=== PATIENT | male | born 1965 | race Caucasian/White ===

== ENCOUNTER 2016-06-11 17:44 | Emergency (ER) | payer MEDICARE, OTHER ==
[~2016-06-11 17:44] MED LIST: *UNABLE1; ACET500CAP PO; ALKA-SELTZER P1 EAC3 PO; ALTA5 PO; AMLODIPINE; APRES50 PO; ARANESP25 IV; ASAB PO; AUG500 PO; BACDS PO; BEN25 PO; BUM1 PO; CARASPUDL PO; CAT1 PO; CIP2 PO; CIP5 PO; COREG12 PO; COREG25 PO; COREG3 PO; CRESTOR20 MG PO; CRESTOR5 MG PO; DEMA20 PO; DSS PO; DUONEB INH; DURICEF PO; EPOGEN IV; EPOGEN2000 MG/ML IV; EPOGEN4000 MG/ML IV; EZFE 200200 MG PO; FLOMAX4 PO; FLONASE NAS; FOSRENOL PO; FOSRENOL1000 MG PO; GLUCPH PO; HABIT21 TOP; HALF81 PO; INSULIN NOVOLOG; IODOSORB TOP; KDUR10 PO; KLOR-CON M2020 MEQ PO; L20 PO; L40 PO; L80 PO; LANTHANUM CARBONATE 2000 MG PO; LANTUS SC; LEVAQUIN750 MG PO; LEVEMIR SC; LIPITOR20 PO; LIPITOR40 PO; LISINOPRIL40 MG PO; LYRICA50 PO; METFORMIN; MIRALAXPKT PO; MONODOX100 MG PO; Metformin; NEO-SYNEPHRI0.05 % NAS; NEUR300 PO; NICODERM C14 MG/24 H TOP; NORCO1 TA2 PO; NORV10 PO; NORV5 PO; NOVOLOG SC; PCET PO; PERCOCET 10/3251 TAB PO; PERCOCET1 TA4 PO; PLAVIX PO; PRAVACHOL40 MG PO; PRIN10 PO; PRIN2.5 PO; PROAIR HFA INH; PROTONIX PO; PROVHFA INH; RENVELA800 MG PO; SENSIPAR30 M1 PO; SILVADENE1 % TOP; SMZ/TMP PO; SPIRIVA INH; SUCR PO; SYMBICORT 160/41 INH INH; ULTRAM50 PO; VANCOMYCIN; VENOFER IV; ZAROX2.5B PO; ZEMPLAR2 PO; ZESTRIL2.5 MG PO; ZITH250 PO; [UNRECOGNIZED DRUG - REMARK] NAS; percocet
[2016-06-11 17:47] LABS: BASOPHILS 0.6 %; BASOPHILS ABSOLUTE 0.04 10/3/uL (0.0-0.16); EOSINOPHILS 3.8 %; EOSINOPHILS ABSOLUTE 0.26 10/3/uL (0.0-0.53); ER CBC TAT 0 Hrs 05 Mins; HEMATOCRIT 40.5 % (40.0-51.0); HEMOGLOBIN 12.7 g/dL (13.6-17.8); IMMATURE GRANULOCYTES 0.3 %; IMMATURE GRANULOCYTES ABSOLUTE 0.02 10/3/uL (0.0-0.11); LYMPHOCYTES 15.3 %; LYMPHOCYTES ABSOLUTE 1.04 10/3/uL (0.67-4.30); MEAN CORPUS HGB CONC 31.4 g/dL (32.0-36.0); MEAN CORPUSCULAR HEMOGLOB 29.5 pg (26.0-34.0); MEAN PLATELET VOLUME 11.4 fL (9.2-13.0); MONOCYTES 6.6 %; MONOCYTES ABSOLUTE 0.45 10/3/uL (0.21-1.20); NEUTROPHILS 73.4 %; NEUTROPHILS ABSOLUTE 4.97 10/3/uL (2.02-8.40); PLATELET COUNT 121 10/3/uL (150-400); RBC DISTRIBUTION WIDTH 18.2 % (12.0-16.0); WHITE BLOOD CELLS 6.8 10/3/uL (4.5-10.5)
[2016-06-11 17:48] LABS: MANUAL DIFF NO %; MEAN CORPUSCULAR VOLUME 94.2 fL (80-100)
[2016-06-11 18:03] LABS: A/G RATIO 0.8 (0.7-1.9); ALBUMIN 3.3 G/DL (3.5-5.0); ALKALINE PHOSPHATASE 198 U/L (45-117); BUN (BLOOD UREA NITROGEN) 25 MG/DL (6-23); C-REACTIVE PROTEIN 14.3 MG/L (<8.0); CALCIUM, SERUM 8.2 MG/DL (8.5-10.4); CHLORIDE, SERUM 100 MMOL/L (96-112); CO2 (CARBON DIOXIDE) 29 MMOL/L (24-34); CREATININE 6.17 MG/DL (0.70-1.30); GFR AFRICAN AMERICAN 11 ML/MIN (>=60); GFR NON AFRICAN AMERICAN 10 ML/MIN (>=60); GLUCOSE, SERUM 164 MG/DL (60-99); POTASSIUM, SERUM 4.1 MMOL/L (3.5-5.3); SGOT(AST) 13 U/L (5-40); SGPT(ALT) 16 U/L (5-65); SODIUM, SERUM 139 MMOL/L (135-148); TOTAL BILIRUBIN 0.9 MG/DL (0-1.2); TOTAL PROTEIN 7.3 G/DL (6.0-8.5)
== END 2016-06-11 18:50 | disposition home or self-care (01) ==
LOC: ER 17:44
PROVIDERS: Nurse Practitioner Acute Care
DX: L03.113 Cellulitis of right upper limb (principal); F17.200 Nicotine dependence, unspecified, uncomplicated; J44.9 Chronic obstructive pulmonary disease, unspecified; Z95.1 Presence of aortocoronary bypass graft; Z86.73 Personal history of transient ischemic attack (TIA), and cerebral infarction without residual deficits; E11.9 Type 2 diabetes mellitus without complications; Z79.899 Other long term (current) drug therapy
CPT/HCPCS: 73120; 80053; 83605; 84145; 85025; 86140; 87040; 99284